=== PATIENT | male | born 1985 | race African-American/Black ===

== ENCOUNTER 2016-08-04 23:45 | Inpatient (IN) | payer MEDICAID, OTHER ==
[~2016-08-04] VITALS: Ht 175.3 cm; Wt 60.9 kg
[2016-08-04] MEDS ORDERED: OLAN5TAB2 PO (23:52)
[2016-08-05 00:48] LABS: BASOPHILS % (AUTO) 1.6 % (0.0-2.0); EOSINOPHILS % (AUTO) 1.4 % (1.0-6.0); HEMATOCRIT 40.4 % (41-53); HEMOGLOBIN 13.1 g/dL (13.5-17.5); LYMPHOCYTES # (AUTO) 2.3 K/uL (1.0-4.8); LYMPHOCYTES % (AUTO) 33.2 % (22.0-44.0); MEAN CORPUSCULAR HEMOGLOBIN 29.8 pg (26.0-34.0); MEAN CORPUSCULAR HGB CONC 32.4 G/dL (31.0-37.0); MEAN CORPUSCULAR VOLUME 92 fL (80-100); MONOCYTES # (AUTO) 0.7 K/uL (0.1-1.0); MONOCYTES % (AUTO) 9.6 % (2.0-9.0); NEUTROPHILS # (AUTO) 3.7 K/uL (1.8-7.7); NEUTROPHILS % (AUTO) 54.2 % (40.0-70.0); PLATELET COUNT (AUTO) 281 K/uL (150-450); RED CELL DISTRIBUTION WIDTH 14.7 % (11.5-14.5); WHITE BLOOD COUNT (AUTO) 6.9 K/uL (4.5-11.0)
[2016-08-05 00:52] LABS: ANION GAP 6 mmol/L (8-16); CALCIUM, TOTAL 8.8 mg/dL (8.8-10.5); CARBON DIOXIDE 30 mmol/L (22-29); CHLORIDE 101 mmol/L (98-107); GLOMERULAR FILTR. RATE CALC > 60 mL/min (>60); POTASSIUM 3.9 mmol/L (3.5-5.1); SODIUM SERUM 137 mmol/L (136-145); UREA NITROGEN, BLOOD 14 mg/dL (7-18)
[2016-08-05 00:57] LABS: ALANINE AMINOTRANSFERASE 49 U/L (12-78); ALBUMIN 3.7 g/dL (3.4-5.0); ASPARTATE AMINOTRANSFERASE 57 U/L (15-37); BILIRUBIN,TOTAL 0.3 mg/dL (0.1-1.0); TOTAL PROTEIN, SERUM 7.2 g/dL (6.4-8.2)
[2016-08-05 01:07] LABS: RBC MORPHOLOGY COMMENT NORMAL RBC MORPH
[2016-08-05 04:13] VITALS: BP 127/57
[2016-08-05] MEDS ORDERED: PNEUMOCOCCAL VACCINE POLYVALENT 0.5 ML VIAL [PPSV23] IM ONE (05:30)
[2016-08-05 08:48] VITALS: BP 106/75
[2016-08-05 08:54] LABS: GLUCOSE, URINE (UA) NEGATIVE (NEGATIVE); KETONES,URINE NEGATIVE (NEGATIVE); LEUKOCYTE ESTERASE ,URINE NEGATIVE (NEGATIVE); OCCULT BLOOD,URINE NEGATIVE (NEGATIVE); PROTEIN,URINE NEGATIVE (NEGATIVE)
[2016-08-05 08:56] LABS: ADD UA MICROSCOPIC NO; APPEARANCE,URINE HAZY (CLEAR)
[2016-08-05] MEDS: LORazepam 2 MG TABLET PO PRN (09:05)
[2016-08-05] MEDS ORDERED: PETROLATUM,WHITE 71 GM JELLY TP PRN (11:15)
[2016-08-05] MEDS ORDERED: ACETAMINOPHEN 325 MG TABLET PO PRN (11:15)
[2016-08-05] MEDS ORDERED: IBUPROFEN 600 MG TABLET PO PRN (11:15)
[2016-08-05] MEDS ORDERED: ONDANSETRON HCL 4 MG TABLET PO PRN (11:15)
[2016-08-05] MEDS ORDERED: CloNIDine HCL 0.1 MG TABLET PO PRN (11:15)
[2016-08-05] MEDS ORDERED: ALBUTEROL SULFATE HFA 90 MCG/PUFF 8 GM INHALER IH PRN ×2 (11:15→15:00)
[2016-08-05] MEDS ORDERED: MAG HYDROX/AL HYDROX/SIMETH ES 30 ML SUSPENSION UDCUP PO PRN (11:15)
[2016-08-05] MEDS ORDERED: BENZOCAINE/MENTHOL LOZENGE MM PRN (11:15)
[2016-08-05] MEDS ORDERED: BACITRACIN 28.4 GM OINTMENT TP PRN (11:15)
[2016-08-05] MEDS ORDERED: LOPERAMIDE HCL 2 MG CAPSULE PO PRN (11:15)
[2016-08-05] MEDS ORDERED: MAGNESIUM HYDROXIDE SUSPENSION 30 ML UDCUP PO PRN (11:15)
[2016-08-05] MEDS: OLANZapine 5 MG TABLET PO SCH ×2 (13:15→21:55)
[2016-08-06] MEDS: ZOLPIDEM TARTRATE 10 MG TABLET PO PRN (03:00)
[2016-08-06] MEDS: LORazepam 2 MG TABLET PO PRN (04:42)
[2016-08-06] MEDS: OLANZapine 5 MG TABLET PO SCH ×2 (08:13→21:13)
[2016-08-06 09:13] VITALS: BP 112/81
[2016-08-06 16:23] VITALS: BP 117/79
[2016-08-07] MEDS: LORazepam 2 MG TABLET PO PRN ×3 (01:04→16:19)
[2016-08-07] MEDS: ZOLPIDEM TARTRATE 10 MG TABLET PO PRN ×2 (01:04→23:38)
[2016-08-07 08:19] VITALS: BP 124/75
[2016-08-07] MEDS: OLANZapine 5 MG TABLET PO SCH ×2 (08:54→20:15)
[2016-08-07] MEDS: HALOPERIDOL 5 MG TABLET PO PRN (13:16)
[2016-08-07 16:22] VITALS: BP 126/82
[2016-08-07] MEDS: FERROUS SULFATE 325 MG EC TABLET PO SCH (16:23)
[2016-08-08] MEDS: LORazepam 2 MG TABLET PO PRN ×3 (05:02→14:49)
[2016-08-08] MEDS: FERROUS SULFATE 325 MG EC TABLET PO SCH ×2 (06:37→16:47)
[2016-08-08 08:15] VITALS: BP 128/79
[2016-08-08] MEDS: HALOPERIDOL 5 MG TABLET PO PRN ×2 (08:39→14:49)
[2016-08-08] MEDS: OLANZapine 5 MG TABLET PO SCH ×2 (08:39→21:07)
[2016-08-08 21:57] VITALS: BP 122/66
[2016-08-09 00:53] VITALS: BP 121/78
[2016-08-09] MEDS: ZOLPIDEM TARTRATE 10 MG TABLET PO PRN (00:53)
[2016-08-09 03:18] VITALS: BP 97/57
[2016-08-09] MEDS: LORazepam 2 MG TABLET PO PRN ×2 (04:05→07:46)
[2016-08-09] MEDS: FERROUS SULFATE 325 MG EC TABLET PO SCH (06:31)
[2016-08-09] MEDS: OLANZapine 5 MG TABLET PO SCH (07:46)
[2016-08-09] MEDS: HALOPERIDOL 5 MG TABLET PO PRN (07:46)
[2016-08-09 08:08] VITALS: BP 114/80
[2016-08-09] MEDS ORDERED: FERR-89 PO (09:38)
== END 2016-08-09 11:00 | disposition home or self-care (01) | DRG 750 ==
LOC: EMS 23:47 → 3EC 08-05 03:56
DX: F25.1 Schizoaffective disorder, depressive type (principal); F15.20 Other stimulant dependence, uncomplicated; R45.851 Suicidal ideations; F31.9 Bipolar disorder, unspecified; F17.210 Nicotine dependence, cigarettes, uncomplicated; F12.90 Cannabis use, unspecified, uncomplicated; D64.9 Anemia, unspecified; J45.909 Unspecified asthma, uncomplicated; Z59.0 Homelessness; Z71.6 Tobacco abuse counseling; Z71.51 Drug abuse counseling and surveillance of drug abuser; Z79.899 Other long term (current) drug therapy; Z28.21 Immunization not carried out because of patient refusal
CPT/HCPCS: 99285; G0480

== ENCOUNTER 2016-08-14 03:32 | Inpatient (IN) | payer MEDICAID ==
[~2016-08-14] VITALS: Ht 172.7 cm; Wt 61.5 kg
[~2016-08-14 03:32] MED LIST: FERR-89 PO; OLAN5TAB2 PO
[2016-08-14 04:21] LABS: HEMATOCRIT 39.4 % (41-53); HEMOGLOBIN 12.9 g/dL (13.5-17.5); MEAN CORPUSCULAR HEMOGLOBIN 30.3 pg (26.0-34.0); MEAN CORPUSCULAR HGB CONC 32.7 G/dL (31.0-37.0); MEAN CORPUSCULAR VOLUME 93 fL (80-100); PLATELET COUNT (AUTO) 339 K/uL (150-450); RED BLOOD CELL COUNT(AUTO) 4.24 MIL/uL (4.50-5.90); RED CELL DISTRIBUTION WIDTH 15.3 % (11.5-14.5); WHITE BLOOD COUNT (AUTO) 6.5 K/uL (4.5-11.0)
[2016-08-14 04:29] LABS: ANION GAP 6 mmol/L (8-16); CALCIUM, TOTAL 8.4 mg/dL (8.8-10.5); CARBON DIOXIDE 29 mmol/L (22-29); CHLORIDE 106 mmol/L (98-107); CREATININE 1.04 mg/dL (0.60-1.30); GLOMERULAR FILTR. RATE CALC > 60 mL/min (>60); POTASSIUM 4.1 mmol/L (3.5-5.1); SODIUM SERUM 141 mmol/L (136-145); UREA NITROGEN, BLOOD 20 mg/dL (7-18)
[2016-08-14 04:35] LABS: ALANINE AMINOTRANSFERASE 28 U/L (12-78); ALBUMIN 3.5 g/dL (3.4-5.0); ASPARTATE AMINOTRANSFERASE 25 U/L (15-37); BILIRUBIN,TOTAL 0.2 mg/dL (0.1-1.0); TOTAL PROTEIN, SERUM 6.8 g/dL (6.4-8.2)
[2016-08-14 04:40] LABS: BAND NEUTROPHILS % (MANUAL) 13 % (1-5); LYMPHOCYTES % (MANUAL) 35 % (22-44); TOTAL CELLS COUNTED 100
[2016-08-14 04:41] LABS: RBC MORPHOLOGY COMMENT NORMAL RBC MORPH
[2016-08-14] MEDS ORDERED: MAG HYDROX/AL HYDROX/SIMETH ES 30 ML SUSPENSION UDCUP PO PRN ×2 (06:15→18:30)
[2016-08-14] MEDS ORDERED: MAGNESIUM HYDROXIDE SUSPENSION 30 ML UDCUP PO PRN ×2 (06:15→18:30)
[2016-08-14] MEDS ORDERED: ZOLPIDEM TARTRATE 10 MG TABLET PO PRN (06:15)
[2016-08-14] MEDS ORDERED: ACETAMINOPHEN 325 MG TABLET PO PRN (06:15)
[2016-08-14 08:48] VITALS: BP 103/78
[2016-08-14] MEDS: HALOPERIDOL 5 MG TABLET PO PRN (09:05)
[2016-08-14] MEDS: LORazepam 2 MG TABLET PO PRN (09:05)
[2016-08-14] MEDS ORDERED: NICOTINE 21 MG/24 HOUR PATCH TD SCH (10:45)
[2016-08-14] MEDS: NICOTINE 21 MG/24 HOUR PATCH TD SCH (10:58)
[2016-08-14] MEDS: FERROUS SULFATE 325 MG EC TABLET PO SCH (16:35)
[2016-08-14] MEDS ORDERED: FERROUS SULFATE 325 MG EC TABLET PO SCH (17:30)
[2016-08-14] MEDS ORDERED: PETROLATUM,WHITE 71 GM JELLY TP PRN (18:30)
[2016-08-14] MEDS ORDERED: ALBUTEROL SULFATE HFA 90 MCG/PUFF 8 GM INHALER IH PRN (18:30)
[2016-08-14] MEDS ORDERED: ONDANSETRON HCL 4 MG TABLET PO PRN (18:30)
[2016-08-14] MEDS ORDERED: BACITRACIN 28.4 GM OINTMENT TP PRN (18:30)
[2016-08-14] MEDS ORDERED: IBUPROFEN 600 MG TABLET PO PRN (18:30)
[2016-08-14] MEDS ORDERED: LOPERAMIDE HCL 2 MG CAPSULE PO PRN (18:30)
[2016-08-14] MEDS ORDERED: CloNIDine HCL 0.1 MG TABLET PO PRN (18:30)
[2016-08-14] MEDS ORDERED: BENZOCAINE/MENTHOL LOZENGE [8 LOZENGES/PACKET] MM PRN (18:45)
[2016-08-15 06:04] LABS: HEMATOCRIT 42.1 % (41-53); HEMOGLOBIN 13.5 g/dL (13.5-17.5); MEAN CORPUSCULAR VOLUME 94 fL (80-100); PLATELET COUNT (AUTO) 352 K/uL (150-450); RED CELL DISTRIBUTION WIDTH 14.8 % (11.5-14.5)
[2016-08-15 06:31] LABS: ANION GAP 5 mmol/L (8-16); CALCIUM, TOTAL 8.6 mg/dL (8.8-10.5); CARBON DIOXIDE 30 mmol/L (22-29); CHLORIDE 104 mmol/L (98-107); CHOL/HDL RATIO 2.3 (4.2-7.3); GLOMERULAR FILTR. RATE CALC > 60 mL/min (>60); PHOSPHORUS 3.2 mg/dL (2.5-4.9); POTASSIUM 4.4 mmol/L (3.5-5.1); SODIUM SERUM 139 mmol/L (136-145); UREA NITROGEN, BLOOD 13 mg/dL (7-18)
[2016-08-15] MEDS: FERROUS SULFATE 325 MG EC TABLET PO SCH ×2 (07:02→16:41)
[2016-08-15] MEDS: NICOTINE 21 MG/24 HOUR PATCH TD SCH (08:26)
[2016-08-15] MEDS: OMEPRAZOLE 20 MG CAPSULE PO SCH (08:27)
[2016-08-15] MEDS: DOCUSATE SODIUM 100 MG CAPSULE PO SCH (08:27)
[2016-08-15] MEDS: HALOPERIDOL 5 MG TABLET PO PRN (08:27)
[2016-08-15] MEDS: LORazepam 2 MG TABLET PO PRN (08:27)
[2016-08-15 08:34] LABS: BAND NEUTROPHILS % (MANUAL) 5 % (1-5); EOSINOPHILS % (MANUAL) 2 % (1-6); LYMPHOCYTES % (MANUAL) 30 % (22-44); TOTAL CELLS COUNTED 100
[2016-08-15 08:35] LABS: RBC MORPHOLOGY COMMENT NORMAL RBC MORPH
[2016-08-15 08:59] VITALS: BP 122/79
[2016-08-15] MEDS: MAGNESIUM OXIDE 400 MG TABLET PO SCH (19:41)
[2016-08-15 21:08] VITALS: BP 125/78
[2016-08-16 00:44] VITALS: BP 112/79
[2016-08-16] MEDS: LORazepam 2 MG TABLET PO PRN ×3 (03:33→16:41)
[2016-08-16] MEDS: FERROUS SULFATE 325 MG EC TABLET PO SCH ×2 (07:14→16:41)
[2016-08-16 08:24] VITALS: BP 105/70
[2016-08-16] MEDS: MAGNESIUM OXIDE 400 MG TABLET PO SCH ×2 (08:56→16:41)
[2016-08-16] MEDS: DOCUSATE SODIUM 100 MG CAPSULE PO SCH (08:56)
[2016-08-16] MEDS: OMEPRAZOLE 20 MG CAPSULE PO SCH (08:56)
[2016-08-16] MEDS: NICOTINE 21 MG/24 HOUR PATCH TD SCH (08:57)
[2016-08-16] MEDS: OLANZapine 5 MG TABLET PO SCH ×2 (10:41→20:25)
[2016-08-16 16:57] VITALS: BP 129/60
[2016-08-17] MEDS: LORazepam 2 MG TABLET PO PRN (03:15)
[2016-08-17 06:24] VITALS: BP 115/77
[2016-08-17] MEDS: FERROUS SULFATE 325 MG EC TABLET PO SCH (06:36)
[2016-08-17 08:59] VITALS: BP 110/60
[2016-08-17] MEDS: OLANZapine 5 MG TABLET PO SCH (09:05)
[2016-08-17] MEDS: OMEPRAZOLE 20 MG CAPSULE PO SCH (09:05)
[2016-08-17] MEDS: MAGNESIUM OXIDE 400 MG TABLET PO SCH (09:05)
[2016-08-17] MEDS: DOCUSATE SODIUM 100 MG CAPSULE PO SCH (09:05)
[2016-08-17] MEDS: NICOTINE 21 MG/24 HOUR PATCH TD SCH (09:06)
[2016-08-17] MEDS ORDERED: MAGOX PO (09:51)
[2016-08-17] MEDS ORDERED: DSS100 PO (09:51)
[2016-08-17] MEDS ORDERED: OMEP20 PO (09:52)
== END 2016-08-17 12:05 | disposition home or self-care (01) | DRG 750 ==
LOC: EMS 03:32 → 3EI 05:47
DX: F25.1 Schizoaffective disorder, depressive type (principal); R45.851 Suicidal ideations; E58 Dietary calcium deficiency; F17.210 Nicotine dependence, cigarettes, uncomplicated; F12.90 Cannabis use, unspecified, uncomplicated; F15.90 Other stimulant use, unspecified, uncomplicated; J45.909 Unspecified asthma, uncomplicated; J44.9 Chronic obstructive pulmonary disease, unspecified; Z71.51 Drug abuse counseling and surveillance of drug abuser; Z79.899 Other long term (current) drug therapy
CPT/HCPCS: 82306; 83735; 84100; 84443; 85007; 87081; 99285; G0480

== ENCOUNTER 2016-08-18 22:55 | Emergency (ER) | payer MEDICAID, OTHER ==
[~2016-08-18] VITALS: Ht 172.7 cm; Wt 61.0 kg
[~2016-08-18 22:55] MED LIST changes: +DSS100 PO; -FERR-89 PO; +FERS325 PO; +MAGOX PO; +OMEP20 PO
[2016-08-19 03:05] VITALS: BP 100/71
== END 2016-08-19 05:18 | disposition home or self-care (01) ==
LOC: EMS 22:58
DX: R45.851 Suicidal ideations (principal); F17.210 Nicotine dependence, cigarettes, uncomplicated; F20.9 Schizophrenia, unspecified; F12.10 Cannabis abuse, uncomplicated; J45.909 Unspecified asthma, uncomplicated
CPT/HCPCS: 99285